=== PATIENT | male | born 1965 | race Native Hawaiian/Other Pacific Islander ===

== ENCOUNTER 2020-02-09 01:00 | Emergency (ER) | payer OTHER ==
[~2020-02-09] VITALS: Ht 170.2 cm; Wt 90.7 kg
[2020-02-09 04:26] VITALS: BP 171/97
[2020-02-10] MEDS ORDERED: [UNRECOGNIZED DRUG - REMARK] (08:49)
== END 2020-02-09 04:26 | disposition home or self-care (01) ==
LOC: ED 01:00
PROC: 0T9B70Z Drainage of Bladder with Drainage Device, Via Natural or Artificial Opening (ICD-10-PCS; principal; 2020-02-09)
DX: R33.8 Other retention of urine (principal)
CPT/HCPCS: 36415; 51702; 81000; 99282

== ENCOUNTER 2020-02-10 08:25 | Emergency (ER) | payer OTHER ==
[~2020-02-10] VITALS: Ht 170.2 cm; Wt 90.7 kg
[2020-02-10] MEDS ORDERED: [UNRECOGNIZED DRUG - REMARK] (08:49)
[2020-02-10 09:47] LABS: POTASSIUM 4.5 mmol/L (3.6-5.2)
[2020-02-10 10:02] LABS: PLATELET COUNT 171 K/uL (142-355)
[2020-02-10 11:33] VITALS: BP 170/89; TEMP 98.5
== END 2020-02-10 11:33 | disposition home or self-care (01) ==
LOC: ED 08:25
PROVIDERS: Family Medicine
PROC: 0T2BX0Z Change Drainage Device in Bladder, External Approach (ICD-10-PCS; principal; 2020-02-10)
DX: N13.8 Other obstructive and reflux uropathy (principal); E11.65 Type 2 diabetes mellitus with hyperglycemia; Z79.84 Long term (current) use of oral hypoglycemic drugs
CPT/HCPCS: 51702; 80053; 81000; 82962; 85027; 96372; 99283; J1815; J7040

== ENCOUNTER 2020-02-15 11:35 | Emergency (ER) | payer OTHER ==
[~2020-02-15] VITALS: Ht 170.2 cm; Wt 90.7 kg
[~2020-02-15 11:35] MED LIST: [UNRECOGNIZED DRUG - REMARK]
[2020-02-15 11:41] VITALS: TEMP 98.5
[2020-02-15 12:56] VITALS: BP 164/81
== END 2020-02-15 12:56 | disposition home or self-care (01) ==
LOC: ED 11:35
PROC: 0T2BX0Z Change Drainage Device in Bladder, External Approach (ICD-10-PCS; principal; 2020-02-15)
DX: N30.80 Other cystitis without hematuria (principal)
CPT/HCPCS: 51702; 81000; 96372; 99283; J0696; J1885

== ENCOUNTER 2020-02-15 21:04 | Emergency (ER) | payer OTHER ==
[~2020-02-15] VITALS: Ht 170.2 cm; Wt 90.7 kg
[2020-02-15 21:55] VITALS: BP 168/76; TEMP 98.3
== END 2020-02-15 21:55 | disposition home or self-care (01) ==
LOC: ED 21:04
DX: Z46.6 Encounter for fitting and adjustment of urinary device (principal)
CPT/HCPCS: 99282

== ENCOUNTER 2021-06-03 03:18 | Emergency (ER) | payer OTHER ==
[~2021-06-03] VITALS: Ht 170.2 cm; Wt 90.7 kg
[2021-06-03 05:05] VITALS: BP 154/75; TEMP 98
== END 2021-06-03 05:05 | disposition home or self-care (01) ==
LOC: ED 03:18
DX: M79.674 Pain in right toe(s) (principal); M10.9 Gout, unspecified
CPT/HCPCS: 96372; 99283; J1885

== ENCOUNTER 2022-09-23 09:28 | Outpatient (CLI) | payer OTHER | END 2022-09-23 20:24 | disposition home or self-care (01) | LOC: RAD 09:28 | PROVIDERS: ATTEND Internal Medicine | DX: Z02.71 Encounter for disability determination (principal); M25.562 Pain in left knee; M25.561 Pain in right knee; M25.552 Pain in left hip; M25.551 Pain in right hip ==